=== PATIENT | female | born 1975 | race American Indian/Alaskan Native ===

== ENCOUNTER 2020-12-08 23:35 | Emergency (ER) | payer OTHER ==
[2020-12-09] MEDS ORDERED: HYDROcodone/ACETAMINOPHEN 5-325 MG TAB PO ONE (01:21)
[2020-12-09 01:22] VITALS: BP 125/87
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
== END 2020-12-09 01:45 | disposition home or self-care (01) ==
LOC: ED 23:35
DX: S09.93XA Unspecified injury of face, initial encounter (principal); T76.21XA Adult sexual abuse, suspected, initial encounter; J45.909 Unspecified asthma, uncomplicated; Z98.890 Other specified postprocedural states; Y93.89 Activity, other specified; Y92.89 Other specified places as the place of occurrence of the external cause; Y99.8 Other external cause status
CPT/HCPCS: 99282